=== PATIENT | female | born 1965 | race Caucasian/White ===

== ENCOUNTER 2017-07-02 14:21 | Emergency (ER) | payer BC ==
[2017-07-02 14:29] VITALS: BP 119/71
--- NOTE | 2017-07-02 15:13 | UC ---
Lower Extremity/Ankle HPI - HPI Summary HPI Summary: 52 y/o female presents to the urgent care c/o RT foot pain for the past month. Pain began after walking a lot while picking up hey. Pain is 8/10 upon walking associated w/ mild swelling lately. Pain is at the mid foot and heel. Pt denies numbness or tingling fever, SOB, chest pain, N/V/D, urinary problems. - History of Current Complaint Chief Complaint: UCLowerExtremity Stated Complaint: RIGHT FOOT PAIN Time Seen by Provider: 07/02/17 14:41 Hx Obtained From: Patient Hx Last Menstrual Period: 2016 ?: No Onset/Duration: Gradual Onset, Lasting Weeks, Still Present Severity Initially: Mild Severity Currently: Moderate Pain Intensity: 8 Pain Scale Used: 0-10 Numeric Aggravating Factor(s): Ambulation Alleviating Factor(s): Rest Able to Bear Weight: Yes - Risk Factors Gout Risk Factors: Negative DVT Risk Factors: Negative Septic Arthritis Risk Factor: Negative - Allergies/Home Medications Allergies/Adverse Reactions: Allergies Allergy/AdvReac Type Severity Reaction Status Date / Time Sulfa Antibiotics Allergy Rash Verified 07/02/17 14:25 PMH/Surg Hx/FS Hx/Imm Hx Previously Healthy: Yes - Surgical History Surgical History: Yes Surgery Procedure, Year, and Place: right leg vein removal - Family History Known Family History: Positive: Diabetes - Social History Occupation: Employed Full-time Lives: With Family Alcohol Use: Occasionally Substance Use Type: None Smoking Status (MU): Never Smoked Tobacco Review of Systems Constitutional: Negative Skin: Negative Eyes: Negative ENT: Negative Respiratory: Negative Cardiovascular: Negative Gastrointestinal: Negative Genitourinary: Negative Motor: Negative Neurovascular: Negative Musculoskeletal: Other: - RT foot pain Neurological: Negative Psychological: Negative All Other Systems Reviewed And Are Negative: Yes Physical Exam Triage Information Reviewed: Yes Appearance: Well-Appearing, No Pain Distress, Well-Nourished, Obese Vital Signs: Initial Vital Signs Temp 98.3 F 07/02/17 14:26 Pulse 83 07/02/17 14:26 Resp 16 07/02/17 14:26 BP 119/71 07/02/17 14:26 Pulse Ox 98 07/02/17 14:26 Vital Signs Reviewed: Yes Eye Exam: Normal Eyes: Positive: Conjunctiva Clear - PERRLA< EOMI, fundi grossly normal ENT Exam: Normal ENT: Positive: Normal ENT inspection, Hearing grossly normal, Pharynx normal, TMs normal Dental Exam: Normal Neck exam: Normal Neck: Positive: Supple, Nontender, No Lymphadenopathy Respiratory Exam: Normal Respiratory: Positive: Chest non-tender, Lungs clear, Normal breath sounds Cardiovascular Exam: Normal Cardiovascular: Positive: RRR, No Murmur, Pulses Normal Abdominal Exam: Normal Abdomen Description: Positive: Nontender, No Organomegaly, Soft. Negative: CVA Tenderness (R), CVA Tenderness (L) Bowel Sounds: Positive: Present Musculoskeletal: Positive: Other: - RT foot with tenderness on palpation over the mid plantar sole and heel, mild swelling, no erythema observed. FROM of RT foot, with positive pulses, capillary refill brisk, sensation intact. Neurological Exam: Normal Psychological Exam: Normal Skin Exam: Normal Lower Extremity Course/Dx - Course Course Of Treatment: 52 y/o female presents to the urgent care c/o RT foot pain for the past month. Pain began after walking a lot while picking up hey. Pain is 8/10 upon walking associated w/ mild swelling lately. Pain is at the mid foot and heel. Pt denies numbness or tingling fever, SOB, chest pain, N/V/D, urinary problems. HX obtained. RT ankle X-ray ordered, results:mild 1st MYP osteoarthritis, heel spurs. Pt Rx Naproxen Po to alleviate symptoms. Given post -up shoe to avoid flexion of her foot. Advised to avoid long periods of standing and walking. If not resolution of symptoms f/u with PCP or the rubber turner. Pt understood tracy agreed. - Differential Dx/Diagnosis Differential Diagnosis/HQI/PQRI: Arthritis, Bursitis, Contusion, Fracture ( Closed), Sprain, Strain, Tendonitis, Other - spur, plantar fasciitis Provider Diagnoses: 1- Acute RT foot pain w/ spurs and plantar Fasciitis. 2- Osteoarthritis of RT MTP Discharge - Discharge Plan Condition: Stable Disposition: HOME Prescriptions: Naproxen TAB* [Naprosyn 250 mg TAB*] 500 mg PO Q8H PRN #30 tab PRN Reason: Pain Patient Education Materials: Plantar Fasciitis (ED), Heel Spur (ED) Referrals: [facility] [Outside] Ilia MORRIS,Karel Dickson [Doctor of Podiatric Medicine] - 1 Week No Primary Care Phys,NOPCP [Primary Care Provider] - Additional Instructions: 1-please take medication as directed after meals to alleviate pain and swelling 2- Avoid flexion of your foot, keep wearing the post-up shoe 3- F/u PT referral for further evaluation and treatment 4- If not improvement of symptoms please f/u with your PCP or Practical Nurse in 1 week
--- NOTE | 2017-07-02 15:49 | RAD ---
INDICATION: Atraumatic right foot pain COMPARISON: None TECHNIQUE: AP, lateral, and oblique views were obtained. FINDINGS: There are no acute bony findings. There is mild first MTP joint osteoarthritis. There are Achilles and plantar calcaneal spurs. No additional findings. IMPRESSION: MINOR FIRST MTP OSTEOARTHRITIS. HEEL SPURS.
== END 2017-07-02 16:19 | disposition home or self-care (01) ==
LOC: UCCORT 14:21
DX: M77.31 Calcaneal spur, right foot (principal); M72.2 Plantar fascial fibromatosis; M19.071 Primary osteoarthritis, right ankle and foot; M79.671 Pain in right foot
CPT/HCPCS: 99203; G0463

== ENCOUNTER 2019-04-01 08:42 | Emergency (ER) | payer BC ==
[2019-04-01 09:00] VITALS: BP 115/71
--- NOTE | 2019-04-01 09:51 | UC ---
General HPI - HPI Summary HPI Summary: Sore throat and neck soreness for the past two days. Fever as well. Mild cough and congestion. Tolerating liquids. No N/v/D. No rash. Meds: Reviewed - History of Current Complaint Chief Complaint: UCRespiratory Stated Complaint: SORE THROAT, [place]S Time Seen by Provider: 04/01/19 09:08 Hx Last Menstrual Period: 04/19/14 Pain Intensity: 9 - Allergy/Home Medications Allergies/Adverse Reactions: Allergies Allergy/AdvReac Type Severity Reaction Status Date / Time Sulfa (Sulfonamide Allergy Rash Verified 04/01/19 09:00 Antibiotics) Home Medications: Home Medications Dm/PE/Acetaminophen/Doxylamine [Vicks Nyquil Severe Cold-Flu] 1 each PO ONCE PRN 04/01/19 [History Confirmed 04/01/19] PMH/Surg Hx/FS Hx/Imm Hx Previously Healthy: Yes - Surgical History Surgical History: Yes Surgery Procedure, Year, and Place: vericose vein removed - Family History Known Family History: Positive: Diabetes - Social History Alcohol Use: Weekly Alcohol Amount: 2 beets daily Substance Use Type: None Smoking Status (MU): Never Smoked Tobacco When Did the Patient Quit Smoking/Using Tobacco: 25 years ago Review of Systems All Other Systems Reviewed And Are Negative: Yes Constitutional: Positive: Fever ENT: Positive: Sore Throat Physical Exam Triage Information Reviewed: Yes Appearance: Other: - mildly ill appearing Vital Signs: Initial Vital Signs Temp 99.3 F 04/01/19 08:56 Pulse 110 04/01/19 08:56 Resp 18 04/01/19 08:56 BP 115/71 04/01/19 08:56 Pulse Ox 97 04/01/19 08:56 Vital Signs Reviewed: Yes ENT: Positive: Pharyngeal erythema, Nasal congestion, TMs normal, Tonsillar swelling Neck: Positive: Supple, Tenderness @ - anterior cervical nodes, Enlarged Nodes @ - anterior nodes Respiratory: Positive: Lungs clear, Normal breath sounds Cardiovascular: Positive: RRR, No Murmur Course/Dx - Course Course Of Treatment: This is a 53 yr old with fever and sore throat Rapid strep positive Plan Start Amoxicillin as prescribed COntinue to drink plenty of fluids Ibuprofen as needed for pain/fever as directed IF symptoms persist or worsen, recommend follow up with PCP or return to urgent care - Diagnoses Provider Diagnosis: Pharyngitis due to group A beta hemolytic Streptococci Discharge - Sign-Out/Discharge Documenting (check all that apply): Patient Departure All imaging exams completed and their final reports reviewed: No Studies - Discharge Plan Condition: Fair Disposition: HOME Patient Education Materials: Strep Throat (ED) Forms: *Work Release Referrals: No Primary Care Phys,NOPCP [Primary Care Provider] - Additional Instructions: Start Amoxicillin as prescribed COntinue to drink plenty of fluids Ibuprofen as needed for pain/fever as directed IF symptoms persist or worsen, recommend follow up with PCP or return to urgent care - Billing Disposition and Condition Condition: FAIR Disposition: Home
== END 2019-04-01 09:59 | disposition home or self-care (01) ==
LOC: UCCORT 08:42
DX: J02.0 Streptococcal pharyngitis (principal); B95.0 Streptococcus, group A, as the cause of diseases classified elsewhere; Z88.2 Allergy status to sulfonamides
CPT/HCPCS: 87651; 99212; G0463